=== PATIENT | male | born 1970 | race Caucasian/White ===

== ENCOUNTER 2023-03-24 02:21 | Inpatient (IN) | payer MEDICAID ==
[~2023-03-24] VITALS: Ht 170.2 cm; Wt 117.9 kg
[2023-03-24 03:29] VITALS: BP_SYST 163
[2023-03-24] MEDS ORDERED: NACL 0.9% 1,000 ML IV ONE (03:30)
[2023-03-24] MEDS ORDERED: ONDANSETRON HCL 4 MG/2 ML VIAL IVP ONE (03:45)
[2023-03-24] MEDS ORDERED: MORPHINE 4 MG INJ. 4 MG/ML VIAL IVP ONE (03:45)
[2023-03-24] MEDS ORDERED: LORazepam 2 MG/ML VIAL IVP ONE (04:45)
[2023-03-24] MEDS ORDERED: methylPREDNISolone SOD SUCC/PF 62.5 MG/ML VIAL IVP ONE (04:45)
[2023-03-24] MEDS ORDERED: CYCLOBENZAPRINE HCL 10 MG TABLET (FLEXERIL) PO ONE (04:45)
[2023-03-24] MEDS ORDERED: FUROSEMIDE 40 MG/4 ML VIAL IVP ONE (04:45)
[2023-03-24] MEDS ORDERED: IPRATROPIUM/ALBUTEROL SULFATE 3 ML AMPUL.NEB (DUONEB) INH ONE (04:45)
[2023-03-24 04:53] LABS: BASOPHILS # (AUTO) 0.1 K/uL (0.0-0.2); BASOPHILS % (AUTO) 1.5 % (0.0-2.0); EOSINOPHILS # (AUTO) 0.4 K/uL (0.0-0.4); EOSINOPHILS % (AUTO) 4.9 % (0.0-4.0); HEMATOCRIT 44.1 % (36-54); HEMOGLOBIN 14.5 g/dL (14.0-18.0); LYMPHOCYTES # (AUTO) 2.9 K/uL (1.0-5.5); LYMPHOCYTES % (AUTO) 34.8 % (20.5-51.5); MEAN CORPUSCULAR HEMOGLOBIN 31 pg (27-31); MEAN CORPUSCULAR HGB CONC 33 % (32-36); MEAN CORPUSCULAR VOLUME 93 fL (79.0-98.0); MONOCYTES # (AUTO) 0.8 K/uL (0.0-1.0); MONOCYTES % (AUTO) 9.2 % (1.7-9.3); NEUTROPHILS # (AUTO) 4.2 K/uL (1.8-7.7); NEUTROPHILS % (AUTO) 49.6 % (40.0-70.0); PLATELET COUNT (AUTO) 245 K/uL (130-430); RED BLOOD CELL COUNT(AUTO) 4.74 MIL/uL (4.2-6.2); RED CELL DISTRIBUTION WIDTH 15.2 % (9.0-15.0); WHITE BLOOD COUNT (AUTO) 8.4 K/uL (4.8-10.8)
[2023-03-24 04:54] LABS: ANION GAP 10 (5-15); CALCIUM 8.7 mg/dL (8.4-11.0); CHLORIDE 103 mmol/L (98-107); CREATININE 1.63 mg/dL (0.55-1.30); GFR AFRICAN AMERICAN 57 mL/min (>90); GLUCOSE 125 mg/dL (70-99); UREA NITROGEN, BLOOD 24 mg/dL (8-21)
[2023-03-24 05:13] LABS: ALANINE AMINOTRANSFERASE 44 U/L (12-78); ALBUMIN 3.5 g/dL (3.4-4.8); ASPARTATE AMINOTRANSFERASE 40 U/L (10-37); LIPASE 79 U/L (73-393)
[2023-03-24] MEDS ORDERED: ASPIRIN 325 MG TABLET PO ONE (05:30)
[2023-03-24] MEDS ORDERED: LACTULOSE 20 GM/30 ML UDC PO ONE (05:30)
[2023-03-24] MEDS ORDERED: POLYETHYLENE GLYCOL 3350, 17 GM/ POWD.PACK PO SCH (05:30)
[2023-03-24] MEDS ORDERED: PSYLLIUM HUSK 1 PKT PACKET PO SCH (05:30)
[2023-03-24] MEDS ORDERED: SENNOSIDES 8.6 MG TABLET PO ONE (05:30)
[2023-03-24] MEDS ORDERED: LACTULOSE 20 GM/30 ML UDC ONE (06:25)
[2023-03-24] MEDS ORDERED: ASPIRIN 325 MG TABLET ONE (06:26)
[2023-03-24 08:04] LABS: BILIRUBIN,URINE NEGATIVE (NEGATIVE); BLOOD, URINE NEGATIVE (NEGATIVE); CLARITY/URINE CLEAR (CLEAR); COLOR,URINE YELLOW (YELLOW); GLUCOSE,URINE NEGATIVE (NEGATIVE); KETONES,URINE NEGATIVE (NEGATIVE); LEUKOCYTE ESTERASE ,URINE NEGATIVE (NEGATIVE); NITRITE, URINE NEGATIVE (NEGATIVE); PROTEIN URINE NEGATIVE (NEGATIVE); UROBILINOGEN,URINE 0.2 (0.2-1.0)
[2023-03-24] MEDS ORDERED: DOCUSATE SODIUM 100 MG CAPSULE PO PRN (08:45)
[2023-03-24] MEDS ORDERED: POTASSIUM CHLORIDE 20 MEQ TAB.PRT.SR PO PRN (08:45)
[2023-03-24] MEDS ORDERED: MORPHINE 2 MG/ML INJ. SYRINGE IVP PRN ×2 (08:45)
[2023-03-24] MEDS ORDERED: ONDANSETRON HCL 4 MG/2 ML VIAL IVP PRN (08:45)
[2023-03-24] MEDS ORDERED: ZOLPIDEM TARTRATE 5 MG TABLET PO PRN (08:45)
[2023-03-24] MEDS ORDERED: NACL 0.9% 1,000 ML IV SCH (08:45)
[2023-03-24] MEDS ORDERED: MUPIROCIN 2% TOPICAL OINTMENT 22 GM NS PRN (08:45)
[2023-03-24] MEDS ORDERED: ACETAMINOPHEN 325 MG TABLET PO PRN (08:45)
[2023-03-24] MEDS ORDERED: LORazepam 2 MG/ML VIAL IVP PRN (08:45)
[2023-03-24] MEDS ORDERED: MAGNESIUM SULFATE 50 ML IV PRN (08:45)
[2023-03-24] MEDS ORDERED: METOPROLOL TARTRATE 25 MG TABLET PO SCH (09:00)
[2023-03-24] MEDS ORDERED: BISACODYL 10 MG/SUPPOSITORY RC ONE (10:38)
[2023-03-24] MEDS ORDERED: MINERAL OIL 133 ML ENEMA RC ONE (10:38)
[2023-03-24 11:06] VITALS: BP_SYST 145
[2023-03-24 11:09] VITALS: BP_SYST 145
[2023-03-24 11:35] LABS: INR 1.1 (0.80-1.20); PROTHROMBIN TIME 10.9 SECS (9.5-12.5)
[2023-03-24] MEDS: LISINOPRIL 10 MG TABLET (PRINIVIL) PO SCH (11:38)
[2023-03-24] MEDS: FUROSEMIDE 40 MG/4 ML VIAL IVP SCH (11:38)
[2023-03-24] MEDS ORDERED: HEPARIN 25,000 UNITS/D5W 250ML 250 ML IV PRN (11:59)
[2023-03-24] MEDS ORDERED: HEPARIN SODIUM,PORCINE 5,000 UNITS/ML VIAL IVP ONE (12:00)
[2023-03-24] MEDS ORDERED: HEPARIN SODIUM,PORCINE 3000 UNITS/0.6 ML BOLUS IVP PRN (12:15)
[2023-03-24] MEDS ORDERED: HEPARIN SODIUM,PORCINE 2000 UNITS/0.4 ML BOLUS IVP PRN (12:15)
[2023-03-24] MEDS ORDERED: POLYETHYLENE GLYCOL 3350, 17 GM/ POWD.PACK PO ONE (18:15)
[2023-03-24] MEDS ORDERED: CLOPIDOGREL BISULFATE 75 MG TABLET PO ONE (18:15)
[2023-03-24 19:05] LABS: CKMB RELATIVE INDEX 1.1 (0.0-2.9); CREATINE KINASE MB 4.4 ng/mL (0-3.6)
[2023-03-24 20:00] VITALS: BP_SYST 124
[2023-03-24 20:10] VITALS: BP_SYST 114
[2023-03-24 20:58] LABS: BARBITURATE, URINE NEGATIVE (NEG <=200); BENZODIAZEPINE, URINE NEGATIVE (NEG <=150); CANNABINOID, URINE NEGATIVE (NEG <=50); COCAINE, URINE NEGATIVE (NEG <=150); METHAMPHETAMINES SCREEN,URINE POSITIVE (NEG <=500); OPIATE, URINE NEGATIVE (NEG <=100); PHENCYCLIDINE SCREEN,URINE NEGATIVE (NEG <=25); UR TRICYCLIC ANTIDEPRESSANTS NEGATIVE (NEG <=300); URINE AMPHETAMINE POSITIVE (NEG <=500); URINE METHADONE NEGATIVE (NEG <=200); URINE OXYCODONE SCREEN NEGATIVE (NEG <=100); URINE PROPOXYPHENE SCREEN NEGATIVE (NEG <=300)
[2023-03-24] MEDS: CARVEDILOL 25 MG TABLET (COREG) PO SCH (22:00)
[2023-03-25] VITALS: BP_SYST 124
[2023-03-25 04:06] LABS: CKMB RELATIVE INDEX 0.9 (0.0-2.9); CREATINE KINASE MB 2.8 ng/mL (0-3.6)
[2023-03-25 05:00] LABS: BASOPHILS % (AUTO) 0.1 % (0.0-2.0); HEMATOCRIT 44.4 % (36-54); HEMOGLOBIN 14.8 g/dL (14.0-18.0); LYMPHOCYTES # (AUTO) 1.1 K/uL (1.0-5.5); LYMPHOCYTES % (AUTO) 6.3 % (20.5-51.5); MEAN CORPUSCULAR HEMOGLOBIN 31 pg (27-31); MEAN CORPUSCULAR HGB CONC 33 % (32-36); MEAN CORPUSCULAR VOLUME 93 fL (79.0-98.0); MONOCYTES # (AUTO) 0.9 K/uL (0.0-1.0); MONOCYTES % (AUTO) 5.2 % (1.7-9.3); NEUTROPHILS # (AUTO) 15.4 K/uL (1.8-7.7); NEUTROPHILS % (AUTO) 88.4 % (40.0-70.0); PLATELET COUNT (AUTO) 265 K/uL (130-430); RED BLOOD CELL COUNT(AUTO) 4.78 MIL/uL (4.2-6.2); RED CELL DISTRIBUTION WIDTH 15.2 % (9.0-15.0); WHITE BLOOD COUNT (AUTO) 17.5 K/uL (4.8-10.8)
[2023-03-25 05:32] LABS: ALBUMIN 3.1 g/dL (3.4-4.8); CALCIUM 8.6 mg/dL (8.4-11.0); CREATININE 1.57 mg/dL (0.55-1.30); THYROID STIMULATING HORMONE 0.41 uIu/mL (0.34-4.82); TOTAL BILIRUBIN 0.9 mg/dL (0.0-1.0)
[2023-03-25] MEDS ORDERED: GOLYTELY / COLYTE SOLUTION 4 LITERS PO ONE (07:45)
[2023-03-25 08:00] VITALS: BP_SYST 104
[2023-03-25] MEDS: CARVEDILOL 25 MG TABLET (COREG) PO SCH (08:45)
[2023-03-25] MEDS: FUROSEMIDE 40 MG/4 ML VIAL IVP SCH (08:45)
[2023-03-25] MEDS: LISINOPRIL 10 MG TABLET (PRINIVIL) PO SCH (08:46)
[2023-03-25] MEDS ORDERED: POLYETHYLENE GLYCOL 3350, 17 GM/ POWD.PACK PO SCH (09:00)
[2023-03-25] MEDS ORDERED: CLOPIDOGREL BISULFATE 75 MG TABLET PO SCH (09:00)
[2023-03-25] MEDS ORDERED: ASPIRIN 81 MG TAB.CHEW PO SCH (09:00)
[2023-03-25] MEDS ORDERED: LISI10TA29 PO ×2 (10:29)
[2023-03-25] MEDS ORDERED: FURO-149 PO (10:29)
[2023-03-25] MEDS ORDERED: CARV25TA55 PO (10:29)
[2023-03-25] MEDS ORDERED: POTA-178 PO (10:29)
[2023-03-25] MEDS ORDERED: DOCU250C14 PO (10:29)
[2023-03-25] MEDS ORDERED: CLOP75TA32 PO (10:29)
[2023-03-25] MEDS ORDERED: ASPI-1393 PO (10:29)
[2023-03-25] MEDS ORDERED: POLY17PO4 PO (10:29)
[2023-03-25] MEDS ORDERED: BISA-79 PO (10:35)
[2023-03-25 11:29] VITALS: BP_SYST 104
[2023-03-25 16:02] VITALS: BP_SYST 104
[2023-03-25 17:06] VITALS: BP_SYST 112
== END 2023-03-25 18:26 | disposition home or self-care (01) | DRG 190 ==
LOC: SED 02:21 → STU 08:31
PROVIDERS: ADMIT General Practice; ATTEND General Practice
DX: I21.4 Non-ST elevation (NSTEMI) myocardial infarction (principal); N17.0 Acute kidney failure with tubular necrosis; I50.43 Acute on chronic combined systolic (congestive) and diastolic (congestive) heart failure; F17.210 Nicotine dependence, cigarettes, uncomplicated; K59.00 Constipation, unspecified; I42.0 Dilated cardiomyopathy; E66.01 Morbid (severe) obesity due to excess calories; Z20.822 Contact with and (suspected) exposure to COVID-19; R74.01 Elevation of levels of liver transaminase levels; I25.10 Atherosclerotic heart disease of native coronary artery without angina pectoris; F15.10 Other stimulant abuse, uncomplicated; I13.0 Hypertensive heart and chronic kidney disease with heart failure and stage 1 through stage 4 chronic kidney disease, or unspecified chronic kidney disease; N18.9 Chronic kidney disease, unspecified; E11.22 Type 2 diabetes mellitus with diabetic chronic kidney disease; Z88.1 Allergy status to other antibiotic agents; Z88.0 Allergy status to penicillin; Z88.8 Allergy status to other drugs, medicaments and biological substances; Z79.899 Other long term (current) drug therapy; Z95.810 Presence of automatic (implantable) cardiac defibrillator; Z68.41 Body mass index [BMI] 40.0-44.9, adult; Z91.199 Patient's noncompliance with other medical treatment and regimen due to unspecified reason; Z95.5 Presence of coronary angioplasty implant and graft
CPT/HCPCS: 36415; 71045; 76376; 80053; 80061; 80307; 81003; 82550; 82553; 83037; 83605; 83690; 83735; 83880; 84443; 84484; 85025; 85610-TC; 85730-TC; 87040; 93005; 93306; 94640; 96374; 96375; 99285; G0378; J1644; J1940; J2060; J2270; J2405; J2930